=== PATIENT | female | born 1955 | race Caucasian/White ===

== ENCOUNTER 2018-10-08 17:42 | Emergency (ER) | payer BC ==
[2018-10-08] MEDS ORDERED: Fluorescein Opthalmic Strip ONE (19:15)
[2018-10-08] MEDS ORDERED: Proparacaine 0.5% Opth 15 ML BOT ONE (19:15)
== END 2018-10-08 19:56 | disposition home or self-care (01) ==
LOC: ERS 17:42
DX: S05.01XA Injury of conjunctiva and corneal abrasion without foreign body, right eye, initial encounter (principal); H10.9 Unspecified conjunctivitis; E78.5 Hyperlipidemia, unspecified; X58.XXXA Exposure to other specified factors, initial encounter
CPT/HCPCS: 99283

== ENCOUNTER 2024-10-20 13:27 | Outpatient (CLI) | payer MEDICARE | END 2024-10-20 13:28 | disposition home or self-care (01) | LOC: SCSRAD 13:27 | PROVIDERS: ATTEND Family Medicine | DX: M25.562 Pain in left knee (principal); M25.561 Pain in right knee; M17.0 Bilateral primary osteoarthritis of knee ==